=== PATIENT | male | born 2000 | race Asian ===

== ENCOUNTER 2021-10-13 00:13 | Emergency (ER) | payer MEDICAID ==
[~2021-10-13] VITALS: Ht 180.3 cm; Wt 79.4 kg
--- NOTE | 2021-10-13 00:20 | NUR ---
Pt to ER w/ c/o left lower back pain x 1 week worsening tonight s/p "stretching". Pain is 10/10 sharp, burning, and aching in nature radiating to bilateral thighs. Pt states "I cannot walk because it hurts so bad". Pt denies loss of sensation to lower extremities, pt denies urinary or bowel incontinence, pt denies numbness or tingling to lower extremities. Pain worse with ambulation and movement per patient. Denies medical history. NKDA.
[2021-10-13 00:24] VITALS: BP_SYST 184
--- NOTE | 2021-10-13 00:40 | NUR ---
Pt to bed 1 at this time. BO Healy to assume primary care of patient at this time. Pt given urinals to empty bladder prior to use of bladder scanner. Pt placed in gown.
--- NOTE | 2021-10-13 00:44 | NUR ---
Pt emptied 100 mL from bladder at this time. EMT retrieving bladder scanner for .
--- NOTE | 2021-10-13 00:49 | NUR ---
Per bladder scanner, urine contents now at 0 mL in bladder. MD Whitaker notified.
[2021-10-13] MEDS ORDERED: KETOROLAC TROMETHAMINE 60 MG/2 ML VIAL IM ONE (01:15)
[2021-10-13] MEDS ORDERED: HYDROmorphone 1 MG/ML INJ. CARTRIDGE IM ONE (01:15)
--- NOTE | 2021-10-13 01:30 | NUR ---
GARDENIA Whitaker at bedside.
--- NOTE | 2021-10-13 02:00 | NUR ---
Patient resting comfortably with side rails raised. Patient's significant other is at bedside. Nad noted at this time.
[2021-10-13] MEDS ORDERED: CYCLOBENZAPRINE HCL 10 MG TABLET (FLEXERIL) PO ONE (02:15)
--- NOTE | 2021-10-13 03:00 | NUR ---
Patient able to demonstrate proper ambulation without assistance.
[2021-10-13] MEDS ORDERED: CYCL10TA24 PO (05:05)
[2021-10-13] MEDS ORDERED: IBUP-1971 PO (05:05)
[2021-10-13 05:10] VITALS: BP_SYST 121
--- NOTE | 2021-10-13 05:10 | NUR ---
Patient given written and verbal discharge instructions and verbalizes understanding. ER MD discussed with patient the results and treatment provided. Patient in stable condition. ID arm band removed. Rx of Ibuprofen and Flexeril given. Patient educated on pain management and to follow up with PMD. Pain Scale 2/10. Opportunity for questions provided and answered. Medication side effect fact sheet provided. Patient A/Ox4, VSS, ambulatory, resp even and unlabored. NAD noted at this time.
== END 2021-10-13 05:10 | disposition home or self-care (01) ==
LOC: SED 00:13
DX: M54.50 Low back pain, unspecified (principal); Z79.899 Other long term (current) drug therapy
CPT/HCPCS: 99284; 96372; J1885; J1170